=== PATIENT | male | born 1940 | race Caucasian/White ===

== ENCOUNTER 2017-03-27 08:43 | Day surgery (SDC) | payer MEDICARE, BC ==
[~2017-03-27 08:43] MED LIST: Acetaminophen TAB* 325 MG PO PRN; Buffered Lidocaine 0.9% SYRIN* 5 ML/SYR SYRINGE INTRADERM ONE; Buffered Lidocaine 0.9% SYRIN* 5 ML/SYR SYRINGE ONE; Cyclopentolate 1% OPTH.SOL* 2 ML BTL ONE; Ketorolac 0.5% OPHTH (NF) 0.5 % 5 ML BTL ONE; Lidocaine 1% MPF* 2 ML VIAL ONE; Lidocaine 2% EPI 1:200000 MPF* 20 ML VIAL ONE; Neomycin/Polymy/Dex OPTH.SUSP* MAXITROL 0.1% 5 ML ONE; Phenylephrine 2.5% OPTH.SOL* 2 ML BTL ONE; Povidone Iodine 5% OPTH* 30 ML BTL ONE; Proparacaine 0.5% OPHTH.SOL* 15 ML BTL ONE; acetaZOLAMIDE TAB* 250 MG ONE
[2017-03-27] MEDS ORDERED: Midazolam* 1 MG/ML 2 ML VIAL (2 MG) ONE ×2 (10:49→10:54)
[2017-03-27] MEDS ORDERED: fentaNYL* 50 MCG/ML 2 ML VIAL (100 MCG VIAL) ONE (10:52)
[2017-03-27 12:03] VITALS: BP 109/62
--- NOTE | 2017-03-27 12:24 | OP ---
DATE OF OPERATION: 03/27/2017. DATE OF : 1940. SURGEON: Forrest Delgado M.D. PREOPERATIVE DIAGNOSIS: Cataract right eye. POSTOPERATIVE DIAGNOSIS: Cataract right eye. OPERATIVE PROCEDURE: Phacoemulsification right eye with IOL. PROCEDURE: The patient was brought to the operating room after being given 1/2% Alcaine with epinep hrine drops in the preoperative area. The eye was prepped and draped in the usual sterile fashion. Sterile drape and eyelid speculum were placed. Again, topical 1/2% Alcaine with epinephrine was gi kanu. A paracentesis incision was made at the 9 o'clock position with the No.75 blade. Clear cornea incision 2.2 x 2.2-mm was created at the 12 o'clock position starting at the anterior limbus using the 2.2-mm keratome. The anterior chamber was irrigated with 0.4 mL of 1% non-preservative intracam eral lidocaine and filled with DisCoVisc. A capsulorrhexis was completed using the cystotome and martinez e Utrata forceps. Hydrodissection was performed with balanced salt solution. The lens nucleus was r emoved with the Phacoemulsification handpiece without incident. Cortex was removed with the irrigat ion-aspiration handpiece. The capsular bag was re-inflated using DisCoVisc and an [id number] implant was inserted with the shooter. The irrigation-aspiration handpiece was used to remove all residual DisCoVisc. The eye was refilled with balanced salt solution and the wound checked and found to be watertight. Topical Maxitrol drops were given. [id number]/[facility] #: [id number]
== END 2017-03-27 11:30 | disposition home or self-care (01) ==
LOC: OREAST 08:43
PROVIDERS: ATTEND Specialist
DX: H25.811 Combined forms of age-related cataract, right eye (principal); H25.812 Combined forms of age-related cataract, left eye; H35.373 Puckering of macula, bilateral; H43.813 Vitreous degeneration, bilateral; I48.91 Unspecified atrial fibrillation; Z87.891 Personal history of nicotine dependence; Z79.01 Long term (current) use of anticoagulants; E78.5 Hyperlipidemia, unspecified; E78.00 Pure hypercholesterolemia, unspecified
CPT/HCPCS: A9270-GY; J2250; J3010; V2632

== ENCOUNTER 2017-04-09 13:31 | Day surgery (SDC) | payer MEDICARE, BC ==
[~2017-04-09 13:31] MED LIST changes: -Buffered Lidocaine 0.9% SYRIN* 5 ML/SYR SYRINGE ONE; -Cyclopentolate 1% OPTH.SOL* 2 ML BTL ONE; -Ketorolac 0.5% OPHTH (NF) 0.5 % 5 ML BTL ONE; -Lidocaine 1% MPF* 2 ML VIAL ONE; -Lidocaine 2% EPI 1:200000 MPF* 20 ML VIAL ONE; -Neomycin/Polymy/Dex OPTH.SUSP* MAXITROL 0.1% 5 ML ONE; -Phenylephrine 2.5% OPTH.SOL* 2 ML BTL ONE; -Povidone Iodine 5% OPTH* 30 ML BTL ONE; -Proparacaine 0.5% OPHTH.SOL* 15 ML BTL ONE; -acetaZOLAMIDE TAB* 250 MG ONE
[2017-04-09] MEDS ORDERED: Lidocaine 1% MPF wEPI 200,000* 30 ML SDV ONE (13:37)
[2017-04-09] MEDS ORDERED: Cyclopentolate 1% OPTH.SOL* 2 ML BTL ONE (13:38)
[2017-04-09] MEDS ORDERED: Neomycin/Polymy/Dex OPTH.SUSP* MAXITROL 0.1% 5 ML ONE (13:38)
[2017-04-09] MEDS ORDERED: acetaZOLAMIDE TAB* 250 MG ONE (13:38)
[2017-04-09] MEDS ORDERED: Buffered Lidocaine 0.9% SYRIN* 5 ML/SYR SYRINGE ONE (13:38)
[2017-04-09] MEDS ORDERED: Povidone Iodine 5% OPTH* 30 ML BTL ONE (13:38)
[2017-04-09] MEDS ORDERED: Phenylephrine 2.5% OPTH.SOL* 2 ML BTL ONE (13:38)
[2017-04-09] MEDS ORDERED: Proparacaine 0.5% OPHTH.SOL* 15 ML BTL ONE (13:38)
[2017-04-09] MEDS ORDERED: Ketorolac 0.5% OPHTH (NF) 0.5 % 5 ML BTL ONE (13:38)
[2017-04-09] MEDS ORDERED: Lidocaine 2% EPI 1:200000 MPF* 20 ML VIAL ONE (13:38)
[2017-04-09] MEDS ORDERED: Lidocaine 1% MPF* 2 ML VIAL ONE (13:38)
[2017-04-09] MEDS ORDERED: Midazolam* 1 MG/ML 2 ML VIAL (2 MG) ONE ×2 (14:47→14:53)
[2017-04-09 15:34] VITALS: BP 111/67
--- NOTE | 2017-04-09 16:14 | OP ---
DATE OF OPERATION: 04/09/2017 - [facility] DATE OF : 1940. SURGEON: Forrest Delgado M.D. PREOPERATIVE DIAGNOSIS: Cataract left eye. POSTOPERATIVE DIAGNOSIS: Cataract left eye. OPERATIVE PROCEDURE: Phacoemulsification left eye with IOL. DESCRIPTION OF PROCEDURE: The patient was brought to the operating room after being given 1/2% Alcaine with epinephrine drops in the preoperative area. The eye was prepped and draped in the usual sterile fashion. Sterile drape and eyelid speculum were placed. Again, topical 1/2% Alcaine with epinephrine was given. A paracentesis incision was made at the 3 o'clock position with the No.75 blade. Clear cornea incision 2.2 x 2.2-mm was created at the 6 o'clock position starting at the anterior limbus using the 2.2-mm keratome. The anterior chamber was irrigated with 0.4 mL of 1% non-preservative intracameral lidocaine and filled with DisCoVisc. A capsulorrhexis was completed using the cystotome and the Utrata forceps. Hydrodissection was performed with balanced salt solution. The lens nucleus was removed with the Phacoemulsification handpiece without incident. Cortex was removed with the irrigation-aspiration handpiece. The capsular bag was re-inflated using DisCoVisc and an [id number] implant was inserted with the shooter. The irrigation-aspiration handpiece was used to remove all residual DisCoVisc. The eye was refilled with balanced salt solution and the wound checked and found to be watertight. Topical Maxitrol drops were given. [id number]/[facility] #: [id number] [facility]
== END 2017-04-09 15:11 | disposition home or self-care (01) ==
LOC: OREAST 13:31
PROVIDERS: ATTEND Specialist
DX: H25.812 Combined forms of age-related cataract, left eye (principal); Z96.1 Presence of intraocular lens; H35.373 Puckering of macula, bilateral; H43.813 Vitreous degeneration, bilateral; E78.00 Pure hypercholesterolemia, unspecified; Z87.891 Personal history of nicotine dependence; Z79.01 Long term (current) use of anticoagulants; I48.0 Paroxysmal atrial fibrillation; I10 Essential (primary) hypertension; R73.01 Impaired fasting glucose; N40.0 Benign prostatic hyperplasia without lower urinary tract symptoms; L71.9 Rosacea, unspecified; Z98.890 Other specified postprocedural states
CPT/HCPCS: A9270-GY; J2001; J2250; V2632

== ENCOUNTER 2018-03-16 09:55 | Emergency (ER) | payer MEDICARE, BC ==
[2018-03-16 10:32] VITALS: BP 151/81
[2018-03-16] MEDS ORDERED: Silver Sulfadiazine 1%* 20 GM TOPICAL ONE (10:51)
[2018-03-16] MEDS ORDERED: Tetan/Diph/Pertus SYR(Tdap)* 0.5 ML SYR(BOOSTRIX) use SYR IM ONE (10:57)
--- NOTE | 2018-03-16 11:04 | ED ---
Skin Complaint - HPI Summary HPI Summary: Patient presents with burn to right foot that occurred Saturday night (5 days ago ). He reports he was cooking corn and as he was transitioning the hot pot of water to the sink, he spilled some water on his right dorsal foot. He was wearing a sock and so the hot water was trapped against his foot for a brief period until he could but the pot down and remove his sock. He admits to blistering with sloughing of the skin immediately. He has been washing the area and applying bacitracin daily with a dressing. He also took ibuprofen the day of the injury due to pain however he has not needed it since. Has brief pain in foot if he's been sitting for a while w/o foot elevated - sore with walking the first few steps, then it's fine. He's been trying to keep his leg elevated however realizes he may not be keeping it elevated as much as he should. He is here today for concern of focal redness and possible infection. Denies fever, chills, streaking, joint stiffness. He has no autoimmune disorders and denies diabetes. No history of MRSA or staph infection. He is also unsure of his last tetanus shot would like to boost this today. - History of Current Complaint Chief Complaint: UCBurn Time Seen by Provider: 03/16/18 10:31 Stated Complaint: BURN Hx Obtained From: Patient Pain Intensity: 2 - Additional Pertinent History Primary Care Physician: [id number] - Allergy/Home Medications Allergies/Adverse Reactions: Allergies Allergy/AdvReac Type Severity Reaction Status Date / Time No Known Allergies Allergy Verified 03/16/18 10:31 Home Medications: Home Medications Rivaroxaban TAB(*) [Xarelto 15 mg(*)] 25 mg PO DAILY 03/16/18 [History Confirmed 03/16/18] PMH/Surg Hx/FS Hx/Imm Hx Previously Healthy: Yes Endocrine/Hematology History: Reports: Hx Anticoagulant Therapy - xarelto for a. fib Denies: Hx Diabetes, Autoimmune Disease Cardiovascular History: Reports: Hx Atrial Fibrillation - ablation - converted, Hx Hypercholesterolemia, Other Cardiovascular Problems/Disorders - Cardioversions, most recent 02/10/16 Denies: Hx Angina, Hx Coronary Artery Disease, Hx Hypertension, Hx Myocardial Infarction, Hx Valvular Heart Disease Respiratory History: Denies: Hx Asthma, Hx Chronic Obstructive Pulmonary Disease (COPD) Musculoskeletal History: Reports: Hx Arthritis - left Sensory History: Reports: Hx Cataracts - bilat, Hx Contacts or Glasses Denies: Hx Hearing Aid Opthamlomology History: Reports: Hx Cataracts - bilat, Hx Contacts or Glasses - Cancer History Hx Chemotherapy: No - Surgical History Surgery Procedure, Year, and Place: RIGHT hip September 2015 Hx Anesthesia Reactions: No - Immunization History Immunizations Up to Date: Unable to Obtain/Confirm Infectious Disease History: No Infectious Disease History: Denies: History Other Infectious Disease, Traveled Outside the [place] in Last 30 Days - Family History Known Family History: Positive: None - Social History Occupation: Retired Alcohol Use: Daily Hx Substance Use: No Substance Use Type: Reports: None Hx Tobacco Use: Yes - not currently Smoking Status (MU): Former Smoker Type: Cigarettes Amount Used/How Often: smoked for 20 years 1/2- 1ppd Review of Systems Constitutional: Negative Negative: Fever, Chills, Fatigue Negative: Chest Pain Negative: Shortness Of Breath Gastrointestinal: Negative Positive: no symptoms reported Musculoskeletal: Negative Skin: Other - burn Neurological: Negative Psychological: Normal All Other Systems Reviewed And Are Negative: Yes Physical Exam Triage Information Reviewed: Yes Vital Signs On Initial Exam: Initial Vitals Temp Pulse Resp BP Pulse Ox 97.2 F 57 18 151/81 100 03/16/18 10:25 03/16/18 10:25 03/16/18 10:25 03/16/18 10:25 03/16/18 10:25 Vital Signs Reviewed: Yes Appearance: Positive: Well-Appearing, No Pain Distress, Well-Nourished Skin: Positive: Warm, Skin Color Reflects Adequate Perfusion - 5cm area of sloughed, well granulated tissue over Rt dorsal foot about the MT region - rim w / focal erythema that appears to be healing border - scant serous d/c on dressing (could also be anbx ointment - no bleeding) - superficial maceration/ sloughing of skin over 4th/5th toes - no erythema here; peripheral tissue of dorsal foot and toes w/ mild erythema compared to Lt foot - no streaking, no edema, no derek fever Head/Face: Positive: Normal Head/Face Inspection ENT: Positive: Hearing grossly normal Respiratory/Lung Sounds: Positive: Breath Sounds Present Cardiovascular: Positive: Pulses are Symmetrical in both Upper and Lower Extremities. Negative: Leg Edema Left, Leg Edema Right Musculoskeletal: Positive: Normal, Strength/ROM Intact Neurological: Positive: Normal, Sensory/Motor Intact, Alert, Oriented to Person Place, Time Psychiatric: Positive: Normal Diagnostics - Vital Signs Vital Signs Temp Pulse Resp BP Pulse Ox 03/16/18 10:25 97.2 F 57 18 151/81 100 - Laboratory Lab Statement: Any lab studies that have been ordered have been reviewed, and results considered in the medical decision making process. Course/Dx - Course Course Of Treatment: Dressing removed to assess wound - this was then cleaned and redressed by nursing w/ telfa and silvadene. Pt's boostrix was also administered as he was unsure of last tetanus. Questionable if erythema is infection vs. normal healing with focal inflammatory response. Will switch to silvadene topical as he has a partial thickness burn and advised close f/u w/ PCP to assess progress as well as gain referral to wound care/plastic surgery to prevent contracture. Pt agrees w/ plan. - Diagnoses Provider Diagnoses: Second degree burn of right foot Discharge - Sign-Out/Discharge Documenting (check all that apply): Patient Departure All imaging exams completed and their final reports reviewed: No Studies - Discharge Plan Condition: Stable Disposition: HOME Patient Education Materials: Second Degree Burn (ED) Referrals: [facility] [Outside] Additional Instructions: Gently wash wound daily with soap and water, rinse well then pat dry with clean cloth. Reapply Silvadene to nonstick dressing then to wound. Yuo may change dressing 1-2 times a day. Keep leg elevated as much as possible and take ibuprofen with food for pain and swelling. It is encouraged that you have close follow-up in the next 2 days to assess improvement or progression of your injury. Provider may also assess your wound at the time and make a referral to wound care or plastic surgery as healing may result in a scar that could develop what is called a contracture, or stiffness of the skin which can impede range of motion. Call [facility] on Saturday to schedule your appointment for Saturday and take these discharge instructions with you to ensure comprehensive care discussed today for your injury. *If in the meantime you develop fever, chills, purulent drainage, stiffness of your affected area, put the emergency department. - Billing Disposition and Condition Condition: STABLE Disposition: Home
== END 2018-03-16 11:15 | disposition home or self-care (01) ==
LOC: UCEAST 09:55
DX: T25.221A Burn of second degree of right foot, initial encounter (principal); T31.0 Burns involving less than 10% of body surface; X12.XXXA Contact with other hot fluids, initial encounter; Y93.G3 Activity, cooking and baking; Y92.000 Kitchen of unspecified non-institutional (private) residence as the place of occurrence of the external cause; Z23 Encounter for immunization; I48.91 Unspecified atrial fibrillation; Z79.01 Long term (current) use of anticoagulants; Z87.891 Personal history of nicotine dependence
CPT/HCPCS: 16020; 90471; 90715; 99212; A9270-GY; G0463

== ENCOUNTER 2022-03-22 12:04 | Observation (INO) ==
[2022-03-22] MEDS ORDERED: Iodixanol (CONTRAST) 320 MG/ML 100 ML SDV IV ONE (12:21)
[2022-03-22 12:36] LABS: ABS Basophils 0.1 10^3/ul (0-0.2); ABS Eosinophils 0.4 10^3/ul (0-0.6); ABS Lymphocytes 1.1 10^3/ul (1.0-4.8); ABS Monocytes 0.5 10^3/ul (0-0.8); ABS Neutrophils 6.6 10^3/ul (1.5-7.7); Eosinophil % 4.1 %; Hematocrit 49 % (42-52); Hemoglobin 15.9 g/dL (14.0-18.0); Lymphocyte % 12.8 %; Mean Corpuscular HGB Conc 33 g/dL (31-36); Mean Corpuscular Hemoglobin 29 pg (27-31); Mean Corpuscular Volume 89 fL (80-94); Mean Platelet Volume 8.6 fL (7.4-10.4); Nucleated Red Blood Cells % 0.1; Platelet Count 244 10^3/uL (150-450); Red Blood Count 5.43 10^6 /uL (4.18-5.48); Red Cell Distribution Width 16 % (10-15); White Blood Count 8.7 10^3/uL (3.5-10.8)
[2022-03-22 12:42] LABS: INR 1.16 (0.89-1.11)
[2022-03-22 13:20] LABS: Albumin 4.2 g/dL (3.2-5.2); Albumin/Globulin Ratio 1.7 (1-3); Calcium 9.7 mg/dL (8.6-10.3); Globulin 2.5 g/dL (2-4); HDL Cholesterol 51.4 mg/dL; Potassium 4.4 mmol/L (3.5-5.0); Total Bilirubin 1.9 mg/dL (0.2-1.0); Total Protein 6.7 g/dL (6.4-8.9); eGFR CKD-EPI 87.9 (>60)
[2022-03-22 13:22] LABS: Urine Appearance Clear; Urine Bilirubin Negative (Negative); Urine Blood Negative (Negative); Urine Color Straw; Urine Glucose Negative (Negative); Urine Ketones Negative (Negative); Urine Nitrite Negative (Negative); Urine Protein Negative (Negative); Urine Urobilinogen 0.2 (Negative) (Negative)
[2022-03-22] MEDS ORDERED: Lactated Ringers 1000 ml BAG 1,000 ML IV ONE (14:53)
[2022-03-22 16:37] LABS: Magnesium 1.9 mg/dL (1.9-2.7)
[2022-03-23 05:26] LABS: ABS Basophils 0.1 10^3/ul (0-0.2); ABS Eosinophils 0.5 10^3/ul (0-0.6); ABS Lymphocytes 1.3 10^3/ul (1.0-4.8); ABS Monocytes 0.7 10^3/ul (0-0.8); ABS Neutrophils 4.8 10^3/ul (1.5-7.7); Eosinophil % 7.1 %; Hematocrit 42 % (42-52); Hemoglobin 14.1 g/dL (14.0-18.0); Lymphocyte % 17.8 %; Mean Corpuscular HGB Conc 34 g/dL (31-36); Mean Corpuscular Hemoglobin 30 pg (27-31); Mean Corpuscular Volume 89 fL (80-94); Mean Platelet Volume 8.9 fL (7.4-10.4); Platelet Count 203 10^3/uL (150-450); Red Blood Count 4.74 10^6 /uL (4.18-5.48); Red Cell Distribution Width 15 % (10-15); White Blood Count 7.3 10^3/uL (3.5-10.8)
[2022-03-23 05:46] LABS: Albumin 3.7 g/dL (3.2-5.2); Albumin/Globulin Ratio 1.7 (1-3); Calcium 8.9 mg/dL (8.6-10.3); Globulin 2.2 g/dL (2-4); Magnesium 1.9 mg/dL (1.9-2.7); Potassium 4.4 mmol/L (3.5-5.0); Total Bilirubin 2.1 mg/dL (0.2-1.0); Total Protein 5.9 g/dL (6.4-8.9); eGFR CKD-EPI 86.7 (>60)
[2022-03-23 05:56] LABS: INR 1.83 (0.89-1.11)
[2022-03-23 11:22] VITALS: BP 130/95
== END 2022-03-23 15:15 | disposition home or self-care (01) ==
LOC: ED 12:04 → EDHOLD 12:04 → SUATTDRO 15:33 → MEDTELE 20:15
PROVIDERS: ADMIT Hospitalist; ATTEND Internal Medicine